=== PATIENT | female | born 1970 | race Caucasian/White ===

== ENCOUNTER → 2016-09-18 | Outpatient (CLI) | payer OTHER | LOC: MAMO 08-29 11:00 | DX: Z12.31 Encounter for screening mammogram for malignant neoplasm of breast (principal); Z90.710 Acquired absence of both cervix and uterus | CPT/HCPCS: G0202 ==

== ENCOUNTER → 2016-09-19 | Outpatient (CLI) | payer OTHER ==
[2016-09-19 09:52] LABS: BUN/CREATININE RATIO 16 (0-10)
== END ==
LOC: LAB 08:55
PROVIDERS: Family Medicine
DX: Z13.220 Encounter for screening for lipoid disorders (principal)
CPT/HCPCS: 36415; 80048; 80061; 80076